=== PATIENT | male | born 1985 | race Caucasian/White ===

== ENCOUNTER 2021-06-08 21:38 | Emergency (ER) | payer OTHER ==
[~2021-06-08 21:38] MED LIST: AMLODIPINE-BEN1 EAC1 PO; BLOOD PRESSURE; CHOLESTROL; COZAAR 25MG TAB25 MG PO; ETODOLAC500 MG PO; NORCO 5-325 TA1 EACH PO
== END 2021-06-09 00:29 | disposition home or self-care (01) ==
LOC: FER 21:38
DX: S60.221A Contusion of right hand, initial encounter (principal); I10 Essential (primary) hypertension; F17.200 Nicotine dependence, unspecified, uncomplicated; W23.1XXA Caught, crushed, jammed, or pinched between stationary objects, initial encounter
CPT/HCPCS: 73130